=== PATIENT | female | born 1985 | race Caucasian/White ===

== ENCOUNTER 2017-02-02 09:50 | Day surgery (SDC) | payer BC ==
[~2017-02-02 09:50] MED LIST: Buffered Lidocaine 0.9% SYRIN* 5 ML/SYR SYRINGE INTRADERM ONE; Dexamethasone TAB* 4 MG PO ONE; Famotidine IV* 10 MG/ML 2 ML (20 mg) IV ONE; Morphine INJ* 2 MG/ML 1 ML SYRINGE IV PRN; PROCHLORPERAZINE INJ 5 MG/ML 2 ML VIAL IV PRN; Scopolamine 1.5 mg* PATCH TRANSDERM ONE; fentaNYL* 50 MCG/ML 2 ML VIAL (100 MCG VIAL) IV PRN; oxyCODONE/Acetamin 5/325 MG* TAB PO PRN
[2017-02-02] MEDS ORDERED: Scopolamine 1.5 mg* PATCH ONE (09:51)
[2017-02-02] MEDS ORDERED: Famotidine IV* 10 MG/ML 2 ML (20 mg) ONE (09:51)
[2017-02-02] MEDS ORDERED: Buffered Lidocaine 0.9% SYRIN* 5 ML/SYR SYRINGE ONE (09:51)
[2017-02-02] MEDS ORDERED: Dexamethasone TAB* 4 MG ONE (09:51)
[2017-02-02 10:28] LABS: UR Preg Internal Control QC Line Present
[2017-02-02] MEDS ORDERED: fentaNYL* 50 MCG/ML 2 ML VIAL (100 MCG VIAL) ONE (10:36)
[2017-02-02] MEDS ORDERED: Midazolam* 1 MG/ML 5 ML VIAL (5 MG) ONE (10:36)
[2017-02-02] MEDS ORDERED: KETAMINE HCL* 50 MG/ML 10 ML VIAL ONE (10:36)
[2017-02-02] MEDS ORDERED: Lidocaine 4% TOPICAL* 50 ML TOP.SOLN ONE (11:11)
[2017-02-02] MEDS ORDERED: Oxymetazoline 0.05% NASAL SPR* 15 ML BTL ONE (11:11)
[2017-02-02] MEDS ORDERED: Lidocaine 1% MPF wEPI 200,000* 30 ML SDV ONE (11:11)
[2017-02-02] MEDS ORDERED: oxyCODONE/Acetamin 5/325 MG* TAB ONE (12:58)
[2017-02-02 13:34] VITALS: BP 125/81
--- NOTE | 2017-02-03 02:14 | OP ---
DATE OF OPERATION: 02/02/17 - [facility] DATE OF : 81 SURGEON: Angelito Gomez MD ANESTHESIOLOGIST: Escobar Oropeza MD ANESTHESIA: General PRE-OP DIAGNOSES: Chronic maxillary ethmoidal sinusitis and inferior turbinate hypertrophy. POST-OP DIAGNOSES: Chronic maxillary ethmoidal sinusitis and inferior turbinate hypertrophy. OPERATIVE PROCEDURE: Bilateral endoscopic sinus surgery and inferior turbinate reductions using the nasal debrider, the endoscopic sinus surgery with bilateral maxillary antrostomies with debridement and anterior ethmoidectomies. COMPLICATIONS: None. DISPOSITION: Good. SPECIMEN: Left and right ethmoid and maxillary sinus contents. DESCRIPTION OF PROCEDURE: The patient was taken to the operating room, placed in the supine position on the operating room table, general anesthesia induced, and she was maintained with laryngeal mask airway anesthesia. Nose was packed bilaterally with cottonoids impregnated with oxymetazoline and 4% lidocaine. She was draped for the surgery. After several minutes, the packs were removed and the inferior turbinates, middle turbinates, uncinate process, and anterior ethmoid bulla were all injected with 1% lidocaine with 1:100,000 epinephrine. The middle turbinates were medialized. The curved seeker was used to confirm the ostium and the maxillary sinus. The backbiter was used to make a cut on the uncinate process low and then this was debrided. Some swollen tissue around the ostium was debrided, we placed these in the debrider. A J curette was used to enter the anterior ethmoid bulla. This space was debrided leaving the open cavity intact. Incision was made in the anterior inferior turbinate. The caudal elevator was used to elevate the mucosa off the bone. The turbinate debrided was inserted into this pocket, the submucosa was debrided. These were then outfractured. Stammberger sinus foam was placed lateral to the middle turbinates. The patient tolerated the procedure well. No complications. He was transferred to recovery room in stable condition. [id number] #: [id number] MTDD
[2017-02-05] MEDS ORDERED: Scopolomine PATCH Remove* 1 NOTE MISC PATCH OFF ONE (06:00)
== END 2017-02-02 13:54 | disposition home or self-care (01) ==
LOC: OR 09:50
PROVIDERS: ATTEND Otolaryngology
DX: J32.8 Other chronic sinusitis (principal); J34.3 Hypertrophy of nasal turbinates; J45.909 Unspecified asthma, uncomplicated
CPT/HCPCS: 81025; 88305; A9270-GY; J2001; J2250; J3010

== ENCOUNTER 2018-12-16 16:46 | Emergency (ER) | payer BC ==
[2018-12-16 17:53] VITALS: BP 128/72
--- NOTE | 2018-12-16 18:00 | UC ---
Skin Complaint HPI - HPI Summary HPI Summary: presents with severe sunburn to face and arms c/o pain and edema no blistering - History of Current Complaint Chief Complaint: UCSkin Stated Complaint: NAUSEA,FEVER,ARMS (SUNBURN) Hx Obtained From: Patient Hx Last Menstrual Period: October 24 Onset/Duration: Sudden Onset, Lasting Days Onset Severity: Moderate Current Severity: Moderate Pain Intensity: 5 Pain Scale Used: 0-10 Numeric Location: Other - face and arms Character: Swelling, Pain, Redness Aggravating Factor(s): Nothing Alleviating Factor(s): Nothing Associated Signs & Symptoms: Positive: Nausea - Allergy/Home Medications Allergies/Adverse Reactions: Allergies Allergy/AdvReac Type Severity Reaction Status Date / Time sucralfate [From Carafate] Allergy GI Upset Verified 12/16/18 17:54 Home Medications: Home Medications Omeprazole 20 mg PO DAILY 12/16/18 [History Confirmed 12/16/18] PMH/Surg Hx/FS Hx/Imm Hx Previously Healthy: Yes Respiratory History: Asthma - Surgical History Surgical History: Yes Surgery Procedure, Year, and Place: Cholecystectomy 2009 [facility]. C-Sections 2006 2007 [facility]. heart cath 2003. hysterectomy October 2018 - Family History Known Family History: Positive: Cardiac Disease, Hypertension - Social History Alcohol Use: Rare Substance Use Type: None Smoking Status (MU): Never Smoked Tobacco - Immunization History Most Recent Influenza Vaccination: 04/27/16 Review of Systems All Other Systems Reviewed And Are Negative: Yes Constitutional: Positive: Fatigue Skin: Positive: Negative Eyes: Positive: Negative ENT: Positive: Negative Respiratory: Positive: Negative Cardiovascular: Positive: Negative Gastrointestinal: Positive: Negative Genitourinary: Positive: Negative Motor: Positive: Negative Neurovascular: Positive: Negative Musculoskeletal: Positive: Negative, Edema - arms Neurological: Positive: Negative Psychological: Positive: Negative Physical Exam Triage Information Reviewed: Yes Appearance: Well-Appearing, No Pain Distress, Well-Nourished Vital Signs: Initial Vital Signs Temp 98.2 F 12/16/18 17:46 Pulse 71 12/16/18 17:46 Resp 18 12/16/18 17:46 BP 128/72 12/16/18 17:46 Pulse Ox 98 12/16/18 17:46 Vital Signs Reviewed: Yes Eyes: Positive: Conjunctiva Clear ENT: Positive: Hearing grossly normal. Negative: Nasal congestion, Nasal drainage, Tonsillar swelling, Tonsillar exudate, Hoarse voice, Sinus tenderness Neck: Positive: Supple, Nontender, No Lymphadenopathy Respiratory: Positive: Lungs clear, Normal breath sounds, No respiratory distress, No accessory muscle use Cardiovascular: Positive: RRR, No Murmur Musculoskeletal: Positive: ROM Intact, Edema @ - arms/dorsum of hands Psychological Exam: Normal Skin Exam: Normal Course/Dx - Diagnoses Provider Diagnosis: Sunburn Discharge - Sign-Out/Discharge Documenting (check all that apply): Patient Departure All imaging exams completed and their final reports reviewed: No Studies - Discharge Plan Condition: Stable Disposition: HOME Prescriptions: predniSONE [Prednisone 20 MG TAB] 60 mg PO DAILY #6 tab Patient Education Materials: Sunscreen (On the skin), Sunburn (ED), Cold Compress or Soak (ED) Referrals: Angélica Larson MD [Primary Care Provider] - - Billing Disposition and Condition Condition: STABLE Disposition: Home
[2018-12-16] MEDS ORDERED: predniSONE TAB* 20 MG PO ONE (18:04)
== END 2018-12-16 18:11 | disposition home or self-care (01) ==
LOC: UCCORT 16:46
DX: L55.9 Sunburn, unspecified (principal); J45.909 Unspecified asthma, uncomplicated; Z88.2 Allergy status to sulfonamides
CPT/HCPCS: 99212; G0463; J7512